=== PATIENT | female | born 1990 | race Caucasian/White ===

== ENCOUNTER 2023-10-25 08:21 | Inpatient (IN) | payer OTHER, SELFPAY ==
[2023-10-25 08:22] VITALS: BP 126/86; PULSE 85; RESP 16; TEMP 36.8; O2SAT 98
--- NOTE | 2023-10-25 09:15 | W.ED.PSYCHS ---
Documented by User: HAO Castillo 10/25/23 11:16 HPI - Psych General: Chief Complaint: Psychiatric Symptoms Stated Complaint: mhe Time Seen by Provider: 10/25/23 08:26 Source: patient and police Mode of arrival: other (police custody) Limitations: no limitations History of Present Illness: Patient is a 33-year-old female presents to ED today in police custody for evaluation of psychosis. According to adult parole officer, patient was reportedly walking down the side of the road when she was picked up. Police state they ran her information and it was noted she had a warrant for her arrest. Patient started making several bizarre statements thus prompting the adult parole officer to bring her to the emergency department instead. Upon arrival she tells me that she has metal devices that have been placed in her ears so that they can track her. She states these devices are emitting radio frequencies that are swelling the vessels in her brain. Patient makes several other delusional/psychotic statements during our exam. She does admit to drug use. States she takes [place] for Bipoloar Disorder. MD complaint: altered mental status Associated psychiatric symptoms: delusions Associated symptoms: Reports delusions; Deny auditory hallucinations, visual hallucinations, homicidal ideation or suicidal ideation Treatments prior to arrival: none Review of Systems Const: Denies: fever(s) or chills Card: Denies: chest pain, palpitations, lightheadedness or syncope Resp: Denies: dyspnea GI: Denies: abdominal pain, nausea, vomiting or diarrhea Skin/Breast: Denies: rash Neuro: Denies: headache(s) Psych: Reports: anxiety and paranoia; Denies: visual hallucinations, auditory hallucinations, suicidal ideation or homicidal ideation Physical Exam Const: COMMON NORMALS: no acute distress, average body habitus, patient oriented x3, no limitations, healthy appearing, alert and well nourished GENERAL APPEARANCE: cooperative Resp: COMMON NORMALS: normal respiratory effort and clear to auscultation bilaterally AUSCULTATION: clear to auscultation bilaterally Cardio: COMMON NORMALS: regular rate and regular rhythm RATE: regular rate RHYTHM: regular rhythm Neuro: HAIDER COMA SCALE: document GCS findings Haider coma scale eye opening: Spontaneous [place] coma scale verbal response: Orientated [place] coma scale motor response: Obey commands [place] coma scale total score: 15 COMMON NORMALS: patient oriented x3, moves all extremities, no focal motor deficits and no sensory deficits noted SENSORIUM/ORIENTATION: Yes alert Psych: COMMON NORMALS: Normal thought process present, cooperative, normal affect, speech normal, activity/motor behavior normal, denies homicidal ideation and denies suicidal ideation APPEARANCE: Yes grossly normal ATTITUDE: Yes calm ACTIVITY/MOTOR BEHAVIOR: Yes appropriate eye contact and No psychomotor agitation SPEECH: Yes normal speech MOOD & AFFECT: Yes euthymic mood THOUGHT PROCESS: Normal thought process present THOUGHT CONTENT: Yes delusions ATTENTION/CONCENTRATION: Yes attention grossly intact and Yes concentration grossly intact MEMORY/COGNITION: Yes memory grossly intact and Yes cognition grossly intact INSIGHT: Fair insight present (Psych) JUDGEMENT: Fair judgement present (Psych) Course Consultations: Consultation #1: Dr. Brenner-will accept patient to NPU Vital Signs: Vital signs: Vital Signs Temperature 98.2 F 10/25/23 14:42 Pulse Rate 85 10/25/23 14:42 Respiratory Rate 16 10/25/23 14:42 Blood Pressure 126/86 10/25/23 14:42 Pulse Oximetry 98 10/25/23 14:42 Oxygen Delivery Me thod Room Air 10/25/23 15:01 [facility] - Psych Medical Decision Making Patient will be an admit to NPU on a 96-hour hold for acute psychosis. Lab Data 10/25/23 09:07 10/25/23 09:07 Laboratory Results WBC 5.85 10^3/uL (3.29-11.43) 10/25/23 09:07 RBC 4.46 10^6/uL (3.85-5.65) 10/25/23 09:07 Hgb 14.00 g/dL (11.27-16.99) 10/25/23 09:07 Hct 42.0 % (36-47) 10/25/23 09:07 MCV 94.2 fl (85-98) 10/25/23 09:07 MCH 31.4 pg (27-33) 10/25/23 09:07 MCHC 33.3 g/dL (30-55) 10/25/23 09:07 RDW 12.6 % (12.1-15.1) 10/25/23 09:07 Plt Count 305 10^3/cmm (157-399) 10/25/23 09:07 MPV 9.6 fL (7.4-10.4) 10/25/23 09:07 Neut % (Auto) 62.9 % 10/25/23 09:07 Lymph % (Auto) 25.8 % 10/25/23 09:07 [place] % (Auto) 7.4 % 10/25/23 09:07 Eos % (Auto) 3.2 % 10/25/23 09:07 Baso % (Auto) 0.5 % 10/25/23 09:07 Neut # (Auto) 3.68 10^3/uL (1.8-7.7) 10/25/23 09:07 Lymph # (Auto) 1.5 10^3/uL (0.8-4.8) 10/25/23 09:07 [place] # (Auto) 0.4 10^3/uL (0.2-0.9) 10/25/23 09:07 Eos # (Auto) 0.2 10^3/uL (0.0-0.8) 10/25/23 09:07 Baso # (Auto) 0.0 10^3/uL (0.0-0.1) 10/25/23 09:07 Nucleated RBC % (auto) 0 % 10/25/23 09:07 Nucleated RBCs # 0.0 /100WBC 10/25/23 09:07 Sodium 141 mmol/L (136-145) 10/25/23 09:07 Potassium 4.4 mmol/L (3.5-5.1) 10/25/23 09:07 Chloride 108 mmol/L (98-107) H 10/25/23 09:07 Carbon Dioxide 23 mmol/L (22-29) 10/25/23 09:07 Anion Gap 14.4 (5-19) 10/25/23 09:07 BUN 6 mg/dL (6-20) 10/25/23 09:07 Creatinine 0.7 mg/dL (0.5-0.9) 10/25/23 09:07 GFR Calculation 95.2 mL/min (90-130) 10/25/23 09:07 Glucose 91 mg/dL (65-115) 10/25/23 09:07 Calculated Osmolality 289 mOsm/kg (285-295) 10/25/23 09:07 Calcium 8.5 mg/dL (8.5-10.5) 10/25/23 09:07 Total Bilirubin 0.4 mg/dL (0.15-1.2) 10/25/23 09:07 AST 25 U/L (0-32) 10/25/23 09:07 ALT 22 U/L (0-33) 10/25/23 09:07 Alkaline Phosphatase 101 U/L (35-105) 10/25/23 09:07 Total Protein 6.8 g/dL (6.6-8.7) 10/25/23 09:07 Albumin 4.0 g/dL (3.5-5.2) 10/25/23 09:07 Globulin 2.8 g/dL (1.3-4.6) 10/25/23 09:07 HCG, Qual Negative (Negative) 10/25/23 09:07 Salicylates < 0.3 mg/dL (3-10) L 10/25/23 09:07 Urine Opiates Screen Negative ng/mL (Negative) 10/25/23 10:10 Acetaminophen < 5.0 ug/mL (10-30) L 10/25/23 09:07 Ur Barbiturates Screen Negative ng/mL (Negative) 10/25/23 10:10 Ur Phencyclidine Scrn Negative ng/mL (Negative) 10/25/23 10:10 Ur Amphetamines Screen Positive ng/mL (Negative) H 10/25/23 10:10 U Benzodiazepines Scrn Negative ng/mL (Negative) 10/25/23 10:10 [place] 0.4 mmol/L (0.6-1.2) L 10/25/23 09:07 Urine Cocaine Screen Negative ng/mL (Negative) 10/25/23 10:10 U Marijuana (THC) Screen Positive ng/mL (Negative) H 10/25/23 10:10 Ethyl Alcohol 85 mg/dL (0-10) H 10/25/23 09:07 No radiology studies performed this visit Discharge Plan Discharge Patient Disposition: Admitted As Inpatient Admit Provider: Lino Brenner Clinical Impression: Acute psychosis, Methamphetamine abuse, Involuntary commitment Condition: Stable Coding Level of Care Code ED Molded Goods Inspector Trimmer for Chg Fwd Documented by User: Chinmay Chamorro DO 10/25/23 16:46 HPI - Psych General: Chief Complaint: Psychiatric Symptoms Stated Complaint: mhe Time Seen by Provider: 10/25/23 08:26 Physical Exam Neuro: HAIDER COMA SCALE: document GCS findings [place] coma scale total score: 15 Course Vital Signs: Vital signs: Vital Signs Temperature 98.2 F 10/25/23 14:42 Pulse Rate 85 10/25/23 14:42 Respiratory Rate 16 10/25/23 14:42 Blood Pressure 126/86 10/25/23 14:42 Pulse Oximetry 98 10/25/23 14:42 Oxygen Delivery Me thod Room Air 10/25/23 15:01 MDM - Psych Medical Decision Making Patient will be an admit to NPU on a 96-hour hold for acute psychosis. Chart reviewed and patient discussed with midlevel. Agree with assessment and plan. Lab Data 10/25/23 09:07 10/25/23 09:07 Laboratory Results WBC 5.85 10^3/uL (3.29-11.43) 10/25/23 09:07 RBC 4.46 10^6/uL (3.85-5.65) 10/25/23 09:07 Hgb 14.00 g/dL (11.27-16.99) 10/25/23 09:07 Hct 42.0 % (36-47) 10/25/23 09:07 MCV 94.2 fl (85-98) 10/25/23 09:07 MCH 31.4 pg (27-33) 10/25/23 09:07 MCHC 33.3 g/dL (30-55) 10/25/23 09:07 RDW 12.6 % (12.1-15.1) 10/25/23 09:07 Plt Count 305 10^3/cmm (157-399) 10/25/23 09:07 MPV 9.6 fL (7.4-10.4) 10/25/23 09:07 Neut % (Auto) 62.9 % 10/25/23 09:07 Lymph % (Auto) 25.8 % 10/25/23 09:07 [place] % (Auto) 7.4 % 10/25/23 09:07 Eos % (Auto) 3.2 % 10/25/23 09:07 Baso % (Auto) 0.5 % 10/25/23 09:07 Neut # (Auto) 3.68 10^3/uL (1.8-7.7) 10/25/23 09:07 Lymph # (Auto) 1.5 10^3/uL (0.8-4.8) 10/25/23 09:07 [place] # (Auto) 0.4 10^3/uL (0.2-0.9) 10/25/23 09:07 Eos # (Auto) 0.2 10^3/uL (0.0-0.8) 10/25/23 09:07 Baso # (Auto) 0.0 10^3/uL (0.0-0.1) 10/25/23 09:07 Nucleated RBC % (auto) 0 % 10/25/23 09:07 Nucleated RBCs # 0.0 /100WBC 10/25/23 09:07 Sodium 141 mmol/L (136-145) 10/25/23 09:07 Potassium 4.4 mmol/L (3.5-5.1) 10/25/23 09:07 Chloride 108 mmol/L (98-107) H 10/25/23 09:07 Carbon Dioxide 23 mmol/L (22-29) 10/25/23 09:07 Anion Gap 14.4 (5-19) 10/25/23 09:07 BUN 6 mg/dL (6-20) 10/25/23 09:07 Creatinine 0.7 mg/dL (0.5-0.9) 10/25/23 09:07 GFR Calculation 95.2 mL/min (90-130) 10/25/23 09:07 Glucose 91 mg/dL (65-115) 10/25/23 09:07 Calculated Osmolality 289 mOsm/kg (285-295) 10/25/23 09:07 Calcium 8.5 mg/dL (8.5-10.5) 10/25/23 09:07 Total Bilirubin 0.4 mg/dL (0.15-1.2) 10/25/23 09:07 AST 25 U/L (0-32) 10/25/23 09:07 ALT 22 U/L (0-33) 10/25/23 09:07 Alkaline Phosphatase 101 U/L (35-105) 10/25/23 09:07 Total Protein 6.8 g/dL (6.6-8.7) 10/25/23 09:07 Albumin 4.0 g/dL (3.5-5.2) 10/25/23 09:07 Globulin 2.8 g/dL (1.3-4.6) 10/25/23 09:07 HCG, Qual Negative (Negative) 10/25/23 09:07 Salicylates < 0.3 mg/dL (3-10) L 10/25/23 09:07 Urine Opiates Screen Negative ng/mL (Negative) 10/25/23 10:10 Acetaminophen < 5.0 ug/mL (10-30) L 10/25/23 09:07 Ur Barbiturates Screen Negative ng/mL (Negative) 10/25/23 10:10 Ur Phencyclidine Scrn Negative ng/mL (Negative) 10/25/23 10:10 Ur Amphetamines Screen Positive ng/mL (Negative) H 10/25/23 10:10 U Benzodiazepines Scrn Negative ng/mL (Negative) 10/25/23 10:10 [place] 0.4 mmol/L (0.6-1.2) L 10/25/23 09:07 Urine Cocaine Screen Negative ng/mL (Negative) 10/25/23 10:10 U Marijuana (THC) Screen Positive ng/mL (Negative) H 10/25/23 10:10 Ethyl Alcohol 85 mg/dL (0-10) H 10/25/23 09:07 Discharge Plan Discharge Patient Disposition: Admitted As Inpatient Admit Provider: Lino Brenner Clinical Impression: Acute psychosis, Methamphetamine abuse, Involuntary commitment Condition: Stable Coding Level of Care Code ED Molded Goods Inspector Trimmer for Shima Osorio
[2023-10-25 09:21] LABS: Basophils % 0.5 %; Eosinophils # 0.2 10^3/uL (0.0-0.8); Eosinophils % 3.2 %; Lymphocytes # 1.5 10^3/uL (0.8-4.8); Lymphocytes % 25.8 %; Mean Corpuscular HGB Conc 33.3 g/dL (30-55); Mean Corpuscular Hemoglobin 31.4 pg (27-33); Mean Corpuscular Volume 94.2 fl (85-98); Mean Platelet Volume 9.6 fL (7.4-10.4); Monocytes # 0.4 10^3/uL (0.2-0.9); Monocytes % 7.4 %; Neutrophils # 3.68 10^3/uL (1.8-7.7); Neutrophils % 62.9 %; Nucleated Red Blood Cells % 0 %; Platelet Count 305 10^3/cmm (157-399); Red Blood Count 4.46 10^6/uL (3.85-5.65); Red Cell Distribution Width 12.6 % (12.1-15.1); White Blood Count 5.85 10^3/uL (3.29-11.43)
[2023-10-25 09:31] LABS: Alanine Aminotransferase 22 U/L (0-33); Alkaline Phosphatase 101 U/L (35-105); Anion Gap 14.4 (5-19); Aspartate Amino Transferase 25 U/L (0-32); Blood Urea Nitrogen 6 mg/dL (6-20); Calcium 8.5 mg/dL (8.5-10.5); Carbon Dioxide 23 mmol/L (22-29); Chloride 108 mmol/L (98-107); Creatinine Clr Calc Pharmacy 99.1178; Globulin 2.8 g/dL (1.3-4.6); Glomerular Filtration Rate 95.2 mL/min (90-130); Glucose 91 mg/dL (65-115); Osmolality Calculated 289 mOsm/kg (285-295); Potassium 4.4 mmol/L (3.5-5.1); Sodium 141 mmol/L (136-145); Total Bilirubin 0.4 mg/dL (0.15-1.2); Total Protein 6.8 g/dL (6.6-8.7)
[2023-10-25 09:34] LABS: Acetaminophen < 5.0 ug/mL (10-30); Salicylate < 0.3 mg/dL (3-10)
[2023-10-25 09:39] LABS: Alcohol Level 85 mg/dL (0-10)
[2023-10-25 09:45] LABS: HCG, Serum Qual Negative (Negative)
[2023-10-25 09:50] LABS: Lithium 0.4 mmol/L (0.6-1.2)
[2023-10-25 10:14] VITALS: BP 126/86; PULSE 85; RESP 16; O2SAT 98
--- NOTE | 2023-10-25 10:22 | PC.NURSE ---
96 hr rights reviewed with patient @1007 with assistance of [facility] Manager Architecture Marvin. Patient verbalized understanding of rights and education. No questions or concerns at this time. Patient provided a drink, and paper copy was left @bedside with patient. MARGARITA sitting outside of pt's room as patient is currently under arrest at this time.
--- NOTE | 2023-10-25 10:29 | PC.PHAR ---
PT STATES SHE TAKES LITHIUM CARBONATE CR 200MG-900MG DAILY, LORAZEPAM (DOES NOT KNOW WHAT STRENGTH), AND TIZANIDINE (DOES NOT KNOW WHAT STRENGTH. UNABLE TO VERIFY ANY OF THE INFORMATION.
[2023-10-25 10:46] LABS: Amphetamines Screen Urine Positive (Negative); Barbiturates Screen Urine Negative (Negative); Benzodiazepines Screen Urine Negative (Negative); Cocaine Screen Urine Negative (Negative); Opiate Screen Urine Negative (Negative); PCP Screen Urine Negative (Negative); THC Screen Urine Positive (Negative)
[2023-10-25 14:42] VITALS: BP 126/86; PULSE 85; RESP 16; TEMP 36.8; O2SAT 98
[2023-10-25 14:56] VITALS: BP 117/86; PULSE 82; RESP 17; O2SAT 98
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
[2023-10-25] MEDS: nicotine 4 mg lozenge MUCOUS MEM (18:35)
[2023-10-25 21:10] VITALS: RESP 16
[2023-10-25] MEDS: trazodone 50 mg Tablet PO (21:47)
[2023-10-25] MEDS: ARIPiprazole 10 mg Tablet 5 MG PO (21:47)
[2023-10-25] MEDS: hyDROXYzine 25 mg Capsule 50 MG PO (21:48)
[2023-10-26 05:55] VITALS: BP 116/77; PULSE 79; RESP 16; O2SAT 50
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
[2023-10-26 08:00] VITALS: BP 123/73; PULSE 76; RESP 16; TEMP 36.6; O2SAT 99
[2023-10-26] MEDS: folic acid 1 mg Tablet PO (09:08)
[2023-10-26] MEDS: multivitamin therapeutic Tablet 1 TAB PO (09:08)
[2023-10-26] MEDS: ibuprofen 600 mg Tablet PO (09:08)
[2023-10-26] MEDS: ARIPiprazole 10 mg Tablet 5 MG PO (09:08)
[2023-10-26] MEDS: nicotine 4 mg lozenge MUCOUS MEM ×4 (09:08→16:38)
[2023-10-26] MEDS: thiamine 100 mg Tablet PO (09:08)
[2023-10-26 12:00] VITALS: BP 125/83; PULSE 76; RESP 16; TEMP 36.6; O2SAT 100
[2023-10-26 16:00] VITALS: BP 125/91; PULSE 77; RESP 17; TEMP 36.5; O2SAT 100
[2023-10-26 20:00] VITALS: BP 117/74; PULSE 78; RESP 16; TEMP 36.4; O2SAT 99
[2023-10-26] MEDS: CLONazepam 0.5 mg Tablet 0.25 MG PO (21:40)
[2023-10-26] MEDS: hyDROXYzine 25 mg Capsule 50 MG PO (21:41)
[2023-10-27 06:31] VITALS: BP 121/81; PULSE 66; RESP 15; O2SAT 98
[2023-10-27] MEDS: CLONazepam 0.5 mg Tablet 0.25 MG PO ×3 (08:01→21:49)
[2023-10-27] MEDS: nicotine 4 mg lozenge MUCOUS MEM ×5 (08:01→18:08)
[2023-10-27] MEDS: thiamine 100 mg Tablet PO (08:01)
[2023-10-27] MEDS: multivitamin therapeutic Tablet 1 TAB PO (08:01)
[2023-10-27] MEDS: ARIPiprazole 10 mg Tablet PO (08:01)
[2023-10-27] MEDS: folic acid 1 mg Tablet PO (08:01)
--- NOTE | 2023-10-27 13:39 | P.NPUPN_ITS ---
Subjective NPU 2 Subjective: 33 year old female admitted with psychosis involuntarily with a history of methamphetamine abuse currently on Abilify. She had reported that she wished to leave here. She had continued to request that her ears be checked as she had nanotechnology placed in her ear in order to control her. She stated that she was uncertain as to how it was placed in there but stated that her boyfriend's family was in the [employer] business and had placed it there. She is reported that she felt like this was part of a real life simulation. She had denied any depression. She had stated that she wished to return back to work. She had continued to minimize the effects of methamphetamine on her thoughts. She had appeared somewhat isolative on the milieu. Mental Status Exam 2 MSE Comments: Patient is a casually dressed thin female who was lying in the dark with poor hygiene. there was no evidence of any abnormal involuntary motor movements tics or tremors appreciated. She was guarded on interview and alert and oriented to person, place and time today. Her speech was decreased in volume and productivity with increased latency and speech. Her mood was described as fine. Her affect was odd and subdued. Her thought process was linear ,logical and goal-directed. Her thought content showed no evidence of active homicidal or suicidal ideation. She did appear to be responding to internal stimuli with verbal outbursts appreciated when she alone in room. There was evidence of bizarre delusions and clear evidence of paranoia with ideas of reference. Her insight is impaired. Her judgment is poor. Her impulse control appeared limited. Her attention span was impaired. Her recent and remote memory were limited. Vitals/I&O/Wt Last Vital Signs Temp 97.6 F 10/26/23 20:00 Pulse 66 10/27/23 06:31 Resp 15 10/27/23 06:31 BP 121/81 10/27/23 06:31 Pulse Ox 98 10/27/23 06:31 O2 Del Method Room Air 10/26/23 20:00 Data NPU 10/25/23 09:07 10/25/23 09:07 A&P Assessment and plan (1) Acute psychosis: (2) Methamphetamine abuse: Plan 33-year-old female involuntarily hospitalized currently homeless and positive for methamphetamine with alleged history of bipolar disorder currently psychotic but seeking help. #1. ?Engage patient in individual milieu and group therapy. #2?? Recommend sober living treatment at the highest level of care to which the patient is willing to commit #3??? CIWA for alcohol withdrawal #4?? TO-15 minute checks? #5?? Continue Abilify 10mg daily with increase to 15mg daily to target psychosis. Involuntary Hold Information 2 96 Hour Hold: 96 Hour Involuntary Admission: Yes 96 Hour Hold Ending Date: 10/29/23 96 Hour Hold Ending Time: 08:40 Attestations NPU 2 Medical Necessity Statement*: Inpatient hospitalization is medically necessary and deemed to ?be ?the clinically appropriate intervention ?at this time.? We will monitor/initiate medications and make changes as indicated.? The patient?s likely length of stay 7-10 days. Coding Level of Care Code Acute Code for Chg Fwd Diagnoses Acute psychosis F23 Methamphetamine abuse F15.10
[2023-10-27 14:00] VITALS: BP 105/76; PULSE 87; RESP 18; TEMP 37.4; O2SAT 99
[2023-10-27] MEDS: hyDROXYzine 25 mg Capsule 50 MG PO (21:50)
[2023-10-27 21:58] VITALS: BP 116/77; PULSE 84; RESP 16; TEMP 36.6; O2SAT 95
[2023-10-28 06:00] VITALS: BP 123/82; PULSE 68; RESP 16; O2SAT 99
[2023-10-28] MEDS: ARIPiprazole 10 mg Tablet 15 MG PO (08:16)
[2023-10-28] MEDS: multivitamin therapeutic Tablet 1 TAB PO (08:16)
[2023-10-28] MEDS: nicotine 4 mg lozenge MUCOUS MEM ×6 (08:17→20:41)
[2023-10-28] MEDS: CLONazepam 0.5 mg Tablet 0.25 MG PO ×3 (08:17→20:41)
[2023-10-28] MEDS: thiamine 100 mg Tablet PO (08:17)
[2023-10-28] MEDS: folic acid 1 mg Tablet PO (08:17)
--- NOTE | 2023-10-28 13:54 | P.NPUPN_ITS ---
Subjective NPU 2 Subjective: Patient presented today reporting that she is doing much better. She reports the resolution of her psychosis which makes her very happy but also very focused on discharge as soon as possible feeling that now there is no reason for her to be here. We talked about the importance of making sure her psychosis has in fact resolved and that she has medication and aftercare. She continues to be resistant to continued or higher level sober living treatment. She reports that she was only using the methamphetamine for weight loss and that she has more willpower than other people that have taken this drug. We discussed the great risks she has an investing in those beliefs versus ensuring proper follow-up. Her 96-hour hold resolves tomorrow morning and we discussed a likelihood for discharge tomorrow but consideration for 21-day hold. Mental Status Exam 2 MSE Comments: This is a slender white female in hospital scrubs with adequate grooming and eye contact. No abnormal movements. Cooperative with exam in no acute distress. Speech was normal rate and volume. Mood described as much better, not psychotic, affect congruent. Her thought process was linear ,logical and goal- directed. Her thought content showed no evidence of active homicidal or suicidal ideation. There were no delusions reported or noted and she did not appear to be responding to internal stimuli and denied auditory or visual hallucinations. Attention and concentration appeared intact and memory was more reliable than previously reported but none were formally tested. She is alert and oriented x 3. Insight and judgment are limited, impulse control appears to be improving but still limited. Vitals/I&O/Wt Last Vital Signs Temp 97.9 F 10/27/23 21:58 Pulse 68 10/28/23 06:00 Resp 16 10/28/23 06:00 BP 123/82 10/28/23 06:00 Pulse Ox 99 10/28/23 06:00 O2 Del Method Room Air 10/26/23 20:00 Data NPU 10/25/23 09:07 10/25/23 09:07 A&P Assessment and plan (1) Acute psychosis: (2) Methamphetamine abuse: Plan 33-year-old female involuntarily hospitalized currently homeless and positive for methamphetamine with alleged history of bipolar disorder currently psychotic but seeking help. 1. ?Engage patient in individual milieu and group therapy. 2.?? Recommend sober living treatment at the highest level of care to which the patient is willing to commit 3.??? SHIRLENE for alcohol withdrawal 4.?? TO-15 minute checks? 5.?? Continue Abilify 10mg daily. 6. Tentative plan for discharge tomorrow.. Involuntary Hold Information 2 96 Hour Hold: 96 Hour Involuntary Admission: Yes 96 Hour Hold Ending Date: 10/29/23 96 Hour Hold Ending Time: 08:40 Attestations NPU 2 Medical Necessity Statement*: Inpatient hospitalization is medically necessary and deemed to ?be ?the clinically appropriate intervention ?at this time.? We will monitor/initiate medications and make changes as indicated.? The patient?s likely length of stay 1-2 days. Coding Level of Care Code Acute Code for Chg Fwd Diagnoses Acute psychosis F23 Methamphetamine abuse F15.10
[2023-10-28 14:00] VITALS: BP 117/72; PULSE 108; RESP 20; TEMP 36.6; O2SAT 96
[2023-10-28] MEDS: trazodone 50 mg Tablet PO (20:41)
[2023-10-28 21:29] VITALS: BP 111/72; PULSE 82; RESP 16; O2SAT 98
[2023-10-29 06:00] VITALS: BP 78/56; PULSE 95; RESP 16; TEMP 36.5; O2SAT 93
[2023-10-29] MEDS: nicotine 4 mg lozenge MUCOUS MEM ×2 (06:52→08:42)
[2023-10-29] MEDS: multivitamin therapeutic Tablet 1 TAB PO (08:42)
[2023-10-29] MEDS: folic acid 1 mg Tablet PO (08:42)
[2023-10-29] MEDS: CLONazepam 0.5 mg Tablet 0.25 MG PO (08:42)
[2023-10-29] MEDS: thiamine 100 mg Tablet PO (08:42)
[2023-10-29] MEDS: ARIPiprazole 10 mg Tablet 15 MG PO (08:42)
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
[2023-10-29 09:36] VITALS: BP 78/56; PULSE 95; RESP 16; TEMP 36.5; O2SAT 93
== END 2023-10-29 10:13 | disposition home or self-care (01) | DRG 885 ==
LOC: ER 11:16 → NP 13:06
PROVIDERS: Family Medicine; Admitting Provider Psychiatry & Neurology Psychiatry; Emergency Provider Physician Assistant; Visit Provider Psychiatry & Neurology Psychiatry
DX: F23 Brief psychotic disorder (principal); Z59.01 Sheltered homelessness; F15.10 Other stimulant abuse, uncomplicated; F31.9 Bipolar disorder, unspecified; Z56.0 Unemployment, unspecified; F10.90 Alcohol use, unspecified, uncomplicated; Y90.4 Blood alcohol level of 80-99 mg/100 ml
CPT/HCPCS: 36415; 80053; 80178; 80306; 80307; 84703; 85025; 97165; 99285